=== PATIENT | male | born 1975 | race Caucasian/White ===

== ENCOUNTER 2016-09-14 18:21 | Emergency (ER) | payer OTHER ==
[~2016-09-14] VITALS: Ht 175.3 cm; Wt 100.0 kg
[~2016-09-14 18:21] MED LIST: CEPH-512 PO; IBUP800T28 PO; SULF1TAB7 PO
[2016-09-14 18:27] VITALS: BP 131/77; PULSE 77; RESP 20; O2SAT 98
[2016-09-14] MEDS ORDERED: Bupivacaine-MPF 0.5% 30 mL Inj ONE (20:31)
--- NOTE | 2016-09-14 21:02 | ED.REPORT ---
HPI-Rash / Abscess Date of Service Sep 14, 2016 ED Provider: Naveed Doshi PA-C Ciro is an otherwise healthy 40-year-old male presenting with a chief complaint of an abscess in his groin. Reports this began several days ago as an area roughly the size of a pencil eraser and is quickly grown. Reports drainage in the last day. Denies fever, chills, abdominal pain, vomiting, testicular pain. Her ports a history of abscesses and cellulitis. 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 Has not used in 4 years. Nursing Notes Stated Complaint: GIANT ABCESS IN GROIN Chief Complaint: Allergic Reaction Nursing Notes Reviewed: Yes Allergies: Coded Allergies: No Known Allergies (Unverified , 08/07/15) Scheduled Cephalexin (Keflex) 500 Mg Capsule 500 MG PO QID Sulfamethoxazole/Trimeth 800-160 mg (Bactrim DS) 1 Each Tablet 1 TABLET PO BID Sulfamethoxazole/Trimeth 800-160 mg (Bactrim DS) 1 Each Tablet 1 TABLET PO BID Scheduled PRN Ibuprofen (Ibuprofen) 800 Mg Tablet 800 MG PO TID PRN PRN For Pain General Time Seen by MD: 19:47 Chief Complaint Abscess Past Medical History Past Medical History Chiari malformation PTSD lipidemia inflammatory bowel disease kidney stones migraine headaches elevated BMI Reports: Diabetes mellitus, GERD, Hypertension Reports: Depression Past Surgical History brain surgery for Chiari malformation, wrist surger Smoking History Current Every Day Smoker Social History Alcohol Use: Denies alcohol use Drug Use: In recovery Other Social History: , Local resident Occupation lives with , Alyssia and baby Ambulatory Status Independent Review of Systems Review of Systems Note: Negative unless stated otherwise in history of present illness Physical Exam General: Well appearing, well developed, well nourished, no acute distress. Head: Atraumatic, normocephalic. Eyes: No scleral icterus or injection. No discharge. Vision grossly intact. ENT: Voice clear, hearing grossly intact. Respiratory: Regular rate and rhythm. Breath sounds present, clear to auscultation and equal bilaterally. No respiratory distress. No increased work of breathing, speaks in complete sentences. Cardiovascular: Regular rate and rhythm, without murmur, gallop or rub. No pedal edema. Gastrointestinal: Abdomen flat and non-tender without guarding or rebound. Bowel sounds normoactive. Skin: Warm and dry. : Roughly 4 cm x 4 cm area of redness, induration, tenderness in the right groin adjacent to the scrotum. Skin has the texture of scar tissue. No pocket of fluctuance is detected. Ultrasound reveals a small pocket of fluid. Normal circumcised penis, no rashes or lesions. Testes descended, nontender without masses bilaterally. Neurological: Grossly nonfocal. Psychological: Alert and oriented. Speech appropriate, linear and logical. Behavior appropriate. Initial Vital Signs Vital Signs (First) Date Time Temp Pulse Resp B/P Pulse Ox O2 Delivery O2 Flow Rate FiO2 09/14/16 18:27 36.6 77 20 131/77 98 Room Air Normal Re-Eval/Medical Decision Med Decision/Clinical Course 40-year-old male presents with a chief complaint of an abscess in his right groin. Patient reports a history of cellulitis and abscess as well as remote history of IV methamphetamine use. Reports his abscess. First is a spot approximately size of the pencil eraser 4 days ago and has grown. Now complains of drainage. On physical exam is generally well-appearing adult male, generally benign physical with normal vitals. There is a 4 cm x 4 cm area of redness, induration and laceration in his right groin. There is no obvious break in the skin. Ultrasound reveals a small pocket of fluid, which I consider draining, and went so far as to anesthetize the region. However on closer examination with the patient nontender is unable to locate any area of fluctuance that I felt would benefit from incision and drainage. I discussed this with the patient, we considered exploring for the pocket that was visualized on ultrasound but instead decided to start oral antibiotics, deferring incision and drainage. This is a course of action has worked well in the past for him. He reports previous success with Bactrim, and I have provided a prescription. Advised regarding [id number] analgesia. Advised regarding primary care follow-up, provided emergency return precautions. Patient verbalized understanding of, and consent to, the plan. Discharge & Departure Impression: Primary Impression: Cellulitis Site of cellulitis: trunk Site of cellulitis of trunk: groin Qualified Code : L03.314 - Cellulitis of groin Disposition: Home Discharge Condition All VS Reviewed: Yes Condition: Stable Patient Instructions: Cellulitis (ED) Additional Instructions: Evaluation in the emergency department for an abscess includes history, physical examination and ultrasound. I could not identify a good target for incision and drainage, and we decided against cutting it open. I will write a prescription for Bactrim DS to be taken twice a day for 10 days. The pain is best treated with 800 mg of ibuprofen (Advil, Motrin) every 8 hours , or 1000 mg of acetaminophen (Tylenol) every 6 hours. These drugs can be taken at the same time for more severe pain. I will give you a referral for primary care provider. Return to the emergency department for any new or worsening symptoms including increasing redness, swelling, pain, fever or feeling ill. Referrals: [facility] EDSupervising Provider for APC: Shai Cary Seth PA-C Sep 14, 2016 21:02
[2016-09-14] MEDS ORDERED: SULF1TAB7 PO (21:03)
[2016-09-14] MEDS ORDERED: Trimethoprim-Sulfa 160 mg-800 mg Tablet PO ONE (21:05)
[2016-09-14 21:16] VITALS: BP 127/79; PULSE 66; RESP 16; O2SAT 100
== END 2016-09-14 21:17 | disposition home or self-care (01) ==
LOC: SED 18:21
DX: L03.314 Cellulitis of groin (principal); E11.9 Type 2 diabetes mellitus without complications; K21.9 Gastro-esophageal reflux disease without esophagitis; I10 Essential (primary) hypertension; F17.200 Nicotine dependence, unspecified, uncomplicated

== ENCOUNTER 2016-10-18 15:15 | Emergency (ER) | payer SELFPAY ==
[2016-10-18 15:40] VITALS: BP 136/88; PULSE 76; RESP 16; O2SAT 98
--- NOTE | 2016-10-18 16:50 | ED.REPORT ---
HPI-General Illness Date of Service Oct 18, 2016 ED Provider: Dr. Timothy Yanes MD A 40 year old male with a history of previous IV drug abuse, Chiari malformation s/p brain surgery, PTSD, IBS, diabetes mellitus, hypertension and GERD presents to the ED complaining of an abscess to the inguinal area that first appeared a few days ago. He reports associated sharp pain and swelling to the affected area. He rates his current pain as a 5/10 and the pain does not radiate. The area starting draining on its own a few days ago but he was still noticing drainage and pain so decided to come in. The patient denies every using IV drugs in the inguinal area. The patient was seen in the ED on 09/14/2016 for an identical abscess and was discharged in good condition with a prescription for Bactrim to be take twice daily for 10 days. He finished the full round of antibiotics and the abscess and cellulitis resolved. Patient denies any recent testicular pain, testicular swelling, chest pain, SOB, headache, fever, chills, cough, unilateral weakness, nausea, vomiting, diarrhea , constipation, hematochezia, hematemesis, dysuria, hematuria, back pain, rash, visual disturbances, numbness or tingling in his extremities. Nursing Notes Stated Complaint: GROIN ABSCESS Chief Complaint: General Complaint Nursing Notes Reviewed: Yes Allergies: Coded Allergies: No Known Allergies (Unverified , 08/07/15) Scheduled Cephalexin (Keflex) 500 Mg Capsule 500 MG PO QID Sulfamethoxazole/Trimeth 800-160 mg (Bactrim DS) 1 Each Tablet 1 TABLET PO BID Sulfamethoxazole/Trimeth 800-160 mg (Bactrim DS) 1 Each Tablet 1 TABLET PO BID Scheduled PRN Ibuprofen (Ibuprofen) 800 Mg Tablet 800 MG PO TID PRN PRN For Pain General Time Seen by MD: 16:49 Chief Complaint Other (Inguinal Abscess) Hx Obtained From: Patient Arrived By: Walk-in Sudden in Onset?: No Symptom Duration: Since onset Associated with: Denies: Abdominal pain, Chest pain, Cough, Fever, Headache, Nausea, Shortness of breath, Vomiting Pertinent Negative: Pt denies other symptoms Recent Healthcare: No recent hospitalization, Recent doctor visit Past Medical History Past Medical History Chiari malformation PTSD lipidemia inflammatory bowel disease kidney stones migraine headaches elevated BMI Previous IV drug abuse Reports: Diabetes mellitus, GERD, Hypertension Reports: Depression Past Surgical History Brain surgery for Chiari malformation, Wrist surger Smoking History Current Every Day Smoker Social History Alcohol Use: Denies alcohol use Drug Use: In recovery, IV drugs Other Social History: , Local resident Occupation lives with , Alyssia and baby Ambulatory Status Independent Review of Systems + Inguinal abscess + Pain to affected area + Swelling to affected area Full Review of Systems Constitutional: Denies: Chills, Fever Respiratory: Denies: Non-productive cough, Shortness of breath GI: Denies: Abdominal pain, Constipation, Diarrhea, Hematemesis, Hematochezia, Nausea, Vomiting Male: Denies Testicular pain, Denies Testicular swelling Musculoskeletal: Denies: Joint pain Skin: Denies Rash Neurologic: Denies: Headache, Numbness, Vision change, Weakness Complete sys rev & neg: except as marked. Physical Exam Nursing note and vitals reviewed. Constitutional: Well-developed, well-nourished. Not diaphoretic. Head: Normocephalic and atraumatic. Mouth/Throat: Oropharynx is clear and moist. No oropharyngeal exudate. Eyes: EOM are normal. Pupils are equal, round, and reactive to light. Neck: Supple, no tracheal deviation. Cardiovascular: Normal rate, regular rhythm. No murmurs. Equal and intact distal pulses throughout. Pulmonary/Chest: Effort normal and breath sounds normal. No respiratory distress. Abdominal: Soft. No distension. There is no tenderness, rebound, or guarding. Male : No perineal swelling, erythema, or tenderness. No testicular tenderness. Small area of swelling to the right inguinal region - possible small abscess; erythema present to the right inguinal crease with mild purulent drainage. No significant induration of fluctuance. No crepitus Back: Straight leg negative. Musculoskeletal: Range of motion grossly intact, moving all extremities. No edema or tenderness appreciated. Neurological: AOx3. Grossly nonfocal exam. Strength and sensation intact and equal to bilateral upper and lower extremities. Skin: Warm and dry, no rashes or pallor appreciated. Psychiatric: Appropriate mood and affect. Behavior appears normal. Vital Signs Vital Signs Date Time Temp Pulse Resp B/P Pulse Ox O2 Delivery O2 Flow Rate FiO2 10/18/16 15:40 36.6 76 16 136/88 98 Room Air Re-Eval/Medical Decision Med Decision/Clinical Course In summary, 40-year-old male presenting to the ED for evaluation of swelling and erythema to the right inguinal region. There has been some concern for abscess in the past, however there is no significant fluctuance or induration on examination, a small area of drainage is present. No drainable fluid collection. I discussed performing a CT scan with the patient, however given clinical exam and lack of other symptoms, I do not think that this is necessary at this time. No signs of a necrotizing soft tissue infection such as Domingo' s gangrene. No testicular pain or tenderness, nor dysuria or discharge. Afebrile, nontoxic appearing. Plan on a course of clindamycin with close PCP follow-up in the next 1-2 days to reassess the area. I explained that I thought that this was a reasonable first step, however if he does not notice significant improvement soon, we made need to pursue further studies. I discussed performing these here in the ED, however he would like to try the antibiotics and reassessment for now, which seems reasonable. Plan discharge home with careful return precautions, close PCP follow-up. Patient agreeable to the plan as stated, no further questions. Time of Eval: 18:35 Patient Status: Condition improved Re-Evaluation/Progress Note: The patient's symptoms have improved upon recheck. He is informed of his results and diagnosis. All questions are addressed. The patient understands and agrees with the intended treatment plan. Counseled Regarding: Diagnosis, Lab results, Need for follow-up, When/why to return to ED Discharge & Departure Primary Impression: Inguinal abscess Additional Impression: Cellulitis Site of cellulitis: other site Qualified Code: L03.818 - Cellulitis of other sites Disposition: Home Discharge Condition All VS Reviewed: Yes Condition: Stable Patient Instructions: Abscess (ED), Cellulitis (ED) Additional Instructions: Thank you for allowing us to be a part of your care in the ED today. Your emergency department examination is reassuring that there is an emergent cause for your symptoms today that would require admission to the hospital. I do not believe the area requires incision and drainage. Antibiotics should clear the area within the next week. Take the full course of ---- as directed. Please schedule a follow up appointment with the [facility] (see referral ) in the next 1-2 days for a recheck. Please return to the emergency department for any new or worsening symptoms including any high fevers, or shaking chills, increased redness, increased swelling, significant purulent discharge, testicular pain, nausea, vomiting, abdominal pain, or if there's anything else of concern to you. Referrals: [facility] (PCP) [facility] Scribe Attestation Portions of this note were transcribed by Junito Gan. I, Dr. Yanes personally performed the history, physical exam and medical decision-making; I reviewed and confirmed the accuracy of the information in the transcribed note. Timothy Yanes MD Oct 18, 2016 16:50 JUNITO GAN Oct 18, 2016 17:37
[2016-10-18 19:11] VITALS: BP 124/87; PULSE 81; RESP 16; O2SAT 99
[2016-10-18] MEDS ORDERED: _Clindamycin 150 mg Capsule PO SCH (21:30)
== END 2016-10-18 19:12 | disposition home or self-care (01) ==
LOC: SED 15:15
DX: L02.214 Cutaneous abscess of groin (principal); L03.314 Cellulitis of groin; F43.10 Post-traumatic stress disorder, unspecified; E11.9 Type 2 diabetes mellitus without complications; I10 Essential (primary) hypertension; K21.9 Gastro-esophageal reflux disease without esophagitis; F32.9 Major depressive disorder, single episode, unspecified; F17.200 Nicotine dependence, unspecified, uncomplicated; Z87.442 Personal history of urinary calculi

== ENCOUNTER 2016-11-12 17:12 | Emergency (ER) | payer OTHER ==
[~2016-11-12] VITALS: Ht 175.3 cm; Wt 100.0 kg
[2016-11-12 17:15] VITALS: BP 113/83; PULSE 92; RESP 16; O2SAT 97
--- NOTE | 2016-11-12 17:30 | ED.REPORT ---
HPI-Rash / Abscess Date of Service Nov 12, 2016 ED Provider: Ciro is a 40-year-old male with a history of diabetes, hypertension presenting to emergency Department with chief complaint of a groin abscess. Patient reports several days of increasing redness, swelling, pain and drainage in his right groin. He reports several episodes of similar, treated with antibiotics which causes symptoms to receive only to return several weeks later. Denies abdominal pain, vomiting, diarrhea, testicular pain, dysuria, penile discharge, hematuria, fever, shaking chills, feeling ill. Admits a remote history of IV methamphetamine use, most recently 4 years ago. Nursing Notes Stated Complaint: GROIN ABSCESS Chief Complaint: Skin Rash/Abscess Nursing Notes Reviewed: Yes Allergies: Coded Allergies: No Known Allergies (Unverified , 08/07/15) Scheduled Cephalexin (Keflex) 500 Mg Capsule 500 MG PO QID Cephalexin (Cephalexin) 500 Mg Tablet 500 MG PO QID Sulfamethoxazole/Trimeth 800-160 mg (Bactrim DS) 1 Each Tablet 1 TABLET PO BID Sulfamethoxazole/Trimeth 800-160 mg (Bactrim DS) 1 Each Tablet 1 TABLET PO BID Sulfamethoxazole/Trimeth 800-160 mg (Bactrim DS) 1 Each Tablet 1 TABLET PO BID Scheduled PRN Ibuprofen (Ibuprofen) 800 Mg Tablet 800 MG PO TID PRN PRN For Pain General Time Seen by MD: 17:29 Chief Complaint Abscess Past Medical History Past Medical History Chiari malformation PTSD lipidemia inflammatory bowel disease kidney stones migraine headaches elevated BMI Previous IV drug abuse Reports: Diabetes mellitus, GERD, Hypertension Reports: Depression Past Surgical History Brain surgery for Chiari malformation, Wrist surger Smoking History Current Every Day Smoker Social History Alcohol Use: Denies alcohol use Drug Use: In recovery, IV drugs Other Social History: , Local resident Occupation lives with , Alyssia and baby Ambulatory Status Independent Review of Systems Review of Systems Note: Negative unless stated otherwise in history of present illness Physical Exam General: Well appearing, well developed, well nourished, no acute distress. : Normal circumcised penis without rashes, lesions or discharge. Testicles and epididymides descended bilaterally, nontender without masses. There is roughly a 4 cm area of redness, induration, tenderness with apparent sinus tract draining purulent/bloody fluid at the inferior inguinal crease adjacent to the scrotum. No fluctuance is noted. Head: Atraumatic, normocephalic. Eyes: No scleral icterus or injection. No discharge. Vision grossly intact. ENT: Voice clear, hearing grossly intact. Respiratory: No respiratory distress, no increased work of breathing. Speaks in complete sentences. GI: Abdomen flat and nontender, normal to auscultation. Skin: Warm and dry. Neurological: Grossly nonfocal. Psychological: alert and oriented. Speech appropriate, linear and logical. Behavior appropriate. Initial Vital Signs Vital Signs (First) Date Time Temp Pulse Resp B/P Pulse Ox O2 Delivery O2 Flow Rate FiO2 11/12/16 17:15 37 92 16 113/83 97 Room Air Normal Interpretation & Diagnostics Interpretation & Diagnostics: PROCEDURE: CT PELVIS WITH CONTRAST ([id number]) INDICATIONS: draining lesion, inguinal crease IMPRESSION: 1. Right inguinal cellulitis with no CT evidence of abscess or drainable fluid collection. 2. Ill-defined 10 mm area of right ilial sclerosis may represent a benign lesion. Consider correlation with a bone scan on a nonemergent basis. Lab Results Interpretation Result Diagram: 11/12/16191811/12/161918 Test 11/12/16 19:19 White Blood Count 11.8th/mm3 (3.8-10.1) Red Blood Count 5.61mil/mm3 (4.40-5.80) Hemoglobin 17.1g/dL (13.8-17.2) Hematocrit 48.6% (41.0-50.0) Mean Corpuscular Volume 86.6fL (81-100) Mean Corpuscular Hemoglobin 30.5pg (27.0-35.0) Mean Corpuscular Hemoglobin Concent 35.2% (32.0-37.0) Red Cell Distribution Width 13.7% (12.3-15.4) Platelet Count 225bil/L (150-400) Neutrophils (%) (Auto) 61.9% (40-74) Lymphocytes (%) (Auto) 25.9% (14-46) Monocytes (%) (Auto) 10.2% (4-12) Eosinophils (%) (Auto) 1.4% (0-5) Basophils (%) (Auto) 0.3% (0-3) Sodium Level 137mEq/L (134-144) Potassium Level 4.2mEq/L (3.5-5.2) Chloride Level 101mEq/L (97-108) Carbon Dioxide Level 21mmol/L (18-29) Blood Urea Nitrogen 13mg/dL (6-20) Creatinine 0.98mg/dL (0.76-1.27) Estimat Glomerular Filtration Rate 91mL/min (>59) Glucose Level 97mg/dL (60-99) Calcium Level 8.9mg/dL (8.5-10.1) Total Bilirubin 0.3mg/dL (0.0-1.2) Aspartate Amino Transf (AST/SGOT) 28U/L (0-50) Alanine Aminotransferase (ALT/SGPT) 36U/L (0-44) Alkaline Phosphatase 82U/L (25-150) Total Protein 7.0g/dL (6.4-8.4) Albumin 4.1g/dL (3.4-5.0) Hold Colmenares Top Tube Received (Received) Re-Eval/Medical Decision Med Decision/Clinical Course 32-year-old male with a history of diabetes, hypertension, IV methamphetamine abuse in the remote past presents emergency Department with repeat right groin cellulitis. Complains of redness, pain, swelling and discharge for the last several days. Reports several previous episodes that resolved after antibiotic treatment but returned within a month. Denies symptoms of systemic illness. Physical examination reveals redness, swelling and induration as well as a small pore apparently draining purulent and bloody fluid in the right inguinal crease adjacent to the scrotum. Penis and testicles are nontender, and abdomen is nontender. Remainder of examination is benign with normal vitals. CBC reveals mild leukocytosis. CMP is unremarkable. I discussed the case with Dr. tompkins, who met with and examined the patient. Recommend CT scan. This returns suggestive of cellulitis with no indication of phlegmon or abscess. Dr. Vickers is consulted, who recommends antibiotics and outpatient follow-up after review of CT scans. I feel this is reasonable considering the patient's nontoxic appearance, minimal leukocytosis and normal vitals. Discussed this with the patient, who is amenable. Provide prescriptions for Bactrim and Keflex. Provided surgery referral. Provided emergent return precautions. Patient verbalizes understanding of and consented to the plan. 10 mm area of right ilial sclerosis incidentally noted on CT scan was not discussed with the patient. I did contact the patient by phone after shift change but he did not pickle maker. I made arrangements for the patient to be contacted tomorrow. Re-Evaluation/Progress : Time of Eval: 20:49 Consultation : Referral / Consult Name: Princess Vickers MD Call Returned at: 20:42 Note: Discussed the case, Dr. Vickers reviewed CT scans. She agrees with the radiologist. Recommends antibiotics, outpatient follow-up in her clinic. Discharge & Departure Impression: Primary Impression: Cellulitis Site of cellulitis: extremity Site of cellulitis of extremity: lower extremity Laterality: right Qualified Code: L03.115 - Cellulitis of right lower limb Disposition: Home Discharge Condition All VS Reviewed: Yes Condition: Stable Patient Instructions: Cellulitis (ED) Additional Instructions: Evaluation for right groin pain in the emergency department includes interview, physical examination, blood work and CT scan all of which suggest you have cellulitis in your groin, again. I discussed the case with Dr. Vickers, general surgeon. She recommends antibiotics and following up in her clinic. I will provide her with a referral. Please contact her office tomorrow to arrange to be seen. Since you just finished a course of clindamycin, I will prescribe Keflex and Bactrim to be taken for the next 10 days. Return to emergency department for new or worsening symptoms including increasing pain, redness, swelling, fever, feeling ill. Referrals: Princess Vickers MD EDSupervising Provider for APC: Casa Tompkins MD Attending Statement Attending attestation: I saw this patient in conjunction with Naveed Doshi PA-C. I independently conducted history and examine the patient. I agree with the workup, evaluation , treatment and disposition. Casa Tompkins MD copies to: Princess Vickers MD, Beck O MD Nov 12, 2016 17:30 Naveed Doshi PA-C Nov 12, 2016 18:55
[2016-11-12 19:24] LABS: BASOPHILS % (AUTO) 0.3 % (0-3); EOSINOPHILS % (AUTO) 1.4 % (0-5); MONOCYTES % (AUTO) 10.2 % (4-12); Mean Corpuscular Hemoglobin 30.5 pg (27.0-35.0); Mean Corpuscular Volume 86.6 fL (81-100); NEUTROPHILS % (AUTO) 61.9 % (40-74); Platelet Count 225 bil/L (150-400)
[2016-11-12 19:58] VITALS: BP 116/58; PULSE 71; RESP 18; O2SAT 96
--- NOTE | 2016-11-12 20:17 | DRSVH ---
PROCEDURE: CT PELVIS WITH CONTRAST ([id number]) INDICATIONS: draining lesion, inguinal crease TECHNIQUE: After the administration of intravenous contrast, 5 mm thick sections acquired from the iliac crests to the symphysis. 5 mm coronal and sagittal reformats were acquired. For radiation dose reduction, the following was used: automated exposure control, adjustment of mA and/or kV according to patient size. COMPARISON: None. FINDINGS: Image quality: Excellent. Peritoneum and bowel: Bowel loops demonstrate normal wall thickness and caliber. No free fluid or a ir. Genitourinary: Bladder wall thickness is normal. Nodes and vessels: No iliac, pelvic, or left inguinal adenopathy by size criteria. Mild right inguin al lymphadenopathy. Iliac vessels demonstrate normal size and enhancement. Bones: Ill-defined 10 mm increased density in the right ileum (se 2 im 14). Miscellaneous: Skin thickening and enhancement in the right inguinal crease with no rim-enhancing flu id collections or evidence of abscess. Minimal right inguinal lymphadenopathy. IMPRESSION: 1. Right inguinal cellulitis with no CT evidence of abscess or drainable fluid collection. 2. Ill-defined 10 mm area of right ilial sclerosis may represent a benign lesion. Consider correlatio n with a bone scan on a nonemergent basis. Dictated by: Mac Napoles M.D. on 11/12/2016 at 20:10 Approved by: Mac Napoles M.D. on 11/12/2016 at 20:15
[2016-11-12] MEDS ORDERED: CEPH500T PO (20:59)
[2016-11-12] MEDS ORDERED: SULF1TAB7 PO (20:59)
[2016-11-12] MEDS ORDERED: Trimethoprim-Sulfa 160 mg-800 mg Tablet PO ONE (21:00)
[2016-11-12 21:14] VITALS: BP 116/58; PULSE 71; RESP 18; O2SAT 96
== END 2016-11-12 21:15 | disposition home or self-care (01) ==
LOC: SED 17:12
DX: L02.214 Cutaneous abscess of groin (principal); E11.9 Type 2 diabetes mellitus without complications; I10 Essential (primary) hypertension; K21.9 Gastro-esophageal reflux disease without esophagitis; F17.200 Nicotine dependence, unspecified, uncomplicated; F15.21 Other stimulant dependence, in remission
CPT/HCPCS: 36415; 72193; 80053; 85025; 99284; Q9967

== ENCOUNTER → 2016-11-29 | Day surgery (SDC) | payer OTHER ==
[2016-11-29] VITALS (8 sets, daily range): BP systolic 104–123; BP diastolic 58–74; PULSE 60–66; RESP 16–17; O2SAT 96–99
[~2016-11-29] VITALS: Ht 175.3 cm; Wt 105.8 kg
[~2016-11-29] MED LIST changes: +Bupivacaine-MPF 0.5% 30 mL Inj INFILTRATE ONE; -CEPH-512 PO; +CeFAZolin 2 Gm/50 mL D5W Duplex Bag IV ONE; +CeFAZolin Inj 2 GM in IV Premix 1 EACH IV ONE; +Dexamethasone 4 mg/mL Inj IVPUSH PRN; +Dexamethasone 4 mg/mL Inj ONE; +EPHEDrine Sulfate 50 mg/mL Inj IVPUSH PRN; +HYDROmorphone 1 mg/mL Inj IVPUSH PRN; -IBUP800T28 PO; +Lactated Ringer's 1,000 ML IV SCH; +Lactated Ringer's 500 ML IV PRN; +MetoCLOpramide 5 mg/mL 2 mL Inj IVPUSH PRN; +MetoCLOpramide 5 mg/mL 2 mL Inj ONE; +Ondansetron 2 mg/mL 2 mL Inj IVPUSH PRN; +Ondansetron 2 mg/mL 2 mL Inj ONE; +Phenylephrine 10,000 mCg/mL Inj IVPUSH PRN; +Propofol 10,000 mCg/mL 20 mL Inj ONE; -SULF1TAB7 PO; +fentaNYL-PF 50 mCg/mL 2 mL Inj IVPUSH PRN
--- NOTE | 2016-11-29 13:42 | PCM.HPANE ---
Patient Data Surgeon Admitting Provider: Attending Provider:Princess Vickers MD Primary Care Physician:Tray Other Provider:Sintia Segovia Anesthesia Reason for Visit Right Groin Phlegmon Ht/WT & BMI Height (Feet): 5 Height (Inches): 9 Weight (Kilograms): 105.8 Body Mass Index 34.00 Allergies Coded Allergies: NSAIDS (Non-Steroidal Anti-Inflamma (Verified Adverse Reaction, Severe, GI BLEEDING (CAN TAKE IBUPROFEN), 11/28/16) Past Anesthesia History Anesthesia History: Denies:: Abnormal Airway, Anesthesia Reactions, Difficult Intubation, Fam Anesthesia Reaction, Fam Malignant Hypertherm, Malignant Hyperthermia Diabetes History Hx Diabetes?: No Type of Diabetes: Diet Controlled MRSA MRSA: No Medications Hypertension Medication: No Home Meds Incl Beta Colten: No No Active Prescriptions or Reported Meds History History of ENT Problems?: No HEENT History: Denies:: Abnormal Airway Difficult Intubation Dysphagia Hearing Problem Sinus Problem TMJ Denture Type: Full- Upper Teeth Condition: Within Normal Limits Hx of Heart Problems?: No Cardiovascular History: Positive for:: Hypertension (HX OF HTN/HYPERLIPIDEMIA) Denies:: Congestive Heart Failure Pacemaker Thrombophlebitis Hx of Respiratory Problem?: No Respiratory History: Denies:: Tuberculosis Use of C-PAP Machine Hx Neurologic Problems?: Yes Neurological History: Denies:: Alzheimer's Disease CVA Dementia Dizziness Headaches Parkinson's Disease Seizures TIA Other Neurological Pertinent: S/P BRAIN SURGERY FOR CHIARI MALFORMATION Hx of GI Problems?: Yes Hx of Problems?: Yes Genitourinary History: Positive for:: Kidney Stones Denies:: HX of Hemodialysis HX of Peritoneal Dialysis: No Male Hx: Denies:: Prostate Problems Scrotal Mass Testicular Surgery Skin History: Positive for:: History Skin Disorders? (RT GROIN PHLEGMON= CURRENT PROBLEM) Denies:: Pressure Ulcers Hx Musculoskeletal Problems?: Yes Musculoskeletal History: Positive for:: Back Injury (from manual labor) Musculoskeletal Trauma (S/P l wrist from self inflicted cut; r wrist screw in place) Denies:: Joint Replacement Osteoarthritis Rheumatoid Arthritis Hx of Psycho/Social Problems?: Yes Psycho Social History: Positive for:: Anxiety (PTSD) Hx Depression Suicide Attempt (W/ RESULTANT WRIST ISSUES) Denies:: Bipolar Disorder Hx Surgeries?: Yes (BRAIN SURGERY, B/L WRIST RPR'S) Hx Any Other Health Problems?: Yes Other History: Positive for:: Hospitalization Denies:: Cancer Endocrine Disease Thyroid Disease History Blood Transfusions: Positive for:: Accept Blood Products? 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) Smoking Status: Current Every Day Smoker Have You Smoked inLast 12 mo: YesApprox How Many Cigarettes/day: 20 Stop/Bang Treated for Sleep Apnea?: No Do You Have a CPAP Machine?: No S-Snoring: Do You Snore Loudly: No T-Tired: feel tired, fatigued: No O-Obsered: Observed not breath: No P-Blood Pressure: treated: No B- Body Mass Index > 35 kg/m2: No A- Age over 50: No N- Neck Large Circumference: No G- Gender Male: Yes CHRISTOPHER Total Score: 1 CHRISTOPHER Risk Assessment: Low Risk, <3 Yes Risk Assessment Category Category 1A: Patient has history of documented sleep apnea, and HAS NOT received any narcotic, sedative or anesthesia administration during this stay. Category 1B: Patient has history of documented sleep apnea, and HAS received any narcotic , sedative or anesthesia administration during this stay Category 2: Patient has SUSPECTED Obstructive Sleep Apnea, and HAS received any narcotic , sedative or anesthesia administration during this stay. Category 3: Patient has SUSPECTED Obstructive Sleep Apnea and HAS NOT received narcotic, sedative or anesthesia administration during this stay. Category 4: Outpatient in Procedural Areas with known sleep apnea or who screen positive for High Risk via the STOP/BANG questionnaire. Exam Exam Vital Signs Vital Signs Date Time Temp Pulse Resp B/P Pulse Ox O2 Delivery O2 Flow Rate FiO2 11/29/16 11:18 36.3 66 16 120/74 96 Room Air General Appearance: Oriented X3 HEENT/AIRWAY: MP 2 Lungs: Normal Air Movement Heart: Regular Rate/Rhythm Plan Impression Patient chart reviewed, patient interviewed and anesthestic plan with risks, benefits, and alternatives discussed, and informed consent obtained. ASA Physical Status: ASA2 Mod Systemic Disease Anesthetic Plan: GA Bene/Risks/Altern/Consents: Yes HP Complete Prior to Induction: Yes Senthil Lal MD Nov 29, 2016 13:42
--- NOTE | 2016-11-29 14:44 | PCM.SURGOP ---
Surgical Operative Report Date of Service: Nov 29, 2016 Pre Operative Diagnosis Right groin phlegmon Post Operative Diagnosis Right groin phlegmon Procedure: Excision of right groin phlegmon Surgeon and Dough Sheeter: Surgeon: Princess Vickers MD Assistants: Nelly Thomas MD R3; Cecille Yung MS3 Indication for Procedure This is a 41-year-old male who has had a right groin phlegmon for several years. It typically presents as a draining sinus in the right groin, without a discrete abscess cavity. It has resulted in several emergency department visits. One month ago, he was in the emergency department and a CT scan was shown which revealed fat stranding within the adipose tissue of the brain consistent with phlegmon, without a discrete abscess cavity. Due to the chronic and recurrent nature of phlegmon, excision was offered. Findings: Thickened, firm adipose tissue in the right groin, consistent with chronic phlegmon. There is no abscess cavity. Procedure Details The patient was brought to the operating room and placed in supine position. General anesthesia was induced. He was repositioned into frog-leg position. The operative field was prepped and draped in sterile fashion. Antibiotics were infused. A preprocedural timeout was performed to confirm the correct patient, procedure, site, and side. An elliptical incision was made in the right groin in order to remove the involved thickened, indurated, chronically inflamed tissue. The underlying adipose tissue was removed with cautery until only normal adipose tissue was exposed. The final cavity measured 5 cm in length by 4 cm in width by 0.5 cm in depth. Subcutaneous tissue was closed with interrupted 3-0 Vicryl stitches. Skin was closed with interrupted nylon stitches. A sterile dressing was placed. The patient was awakened from general anesthesia. He tolerated the procedure well. Complications There were no periprocedural complications identified. Surgical Specimen Removed: Yes Specimen sent to Pathology: No Surgical Specimen description: Right groin phlegmon of skin and subcutaneous tissue; this was sent for culture but not for pathology. Anesthetic Plan: GA Grafts, Implants: None Output, Estimated Blood Loss: 2 (ml) Blood Administration during pang: No Princess Vickers MD Nov 29, 2016 14:44
--- NOTE | 2016-11-29 14:54 | PCM.DISURG ---
Surgical Discharge Instruction Date of Service Nov 29, 2016 Dates of Hospitalization Date of Hospital Admission Providers Admitting Physician: Primary Care Physician: Tray Attending Physician: Princess Vickers MD Discharge Diagnosis Post Operative diagnosis Right groin phlegmon Diet Discharge Diet: No restrictions Activity Discharge Activity-General: No restrictions, Balance rest and activity Dressing and Incisional Care Dressing Care: Change soiled dressing (as needed to keep wound dry.) Hygiene: DO NOT soak incision under water, NO bathtub, hot tub or whirlpool ( until sutures removed.) Follow Up Plan Follow Up Plan 1-2 weeks Mid-level Provider (F9): Ryan Lua PA-C, Shanley B MD Nov 29, 2016 14:54
--- NOTE | 2016-11-29 15:04 | PCM.ANEP1 ---
Post Anesthesia PACU Phase 1 Assessment Vital Signs Vital Signs Date Time Temp Pulse Resp B/P Pulse Ox O2 Delivery O2 Flow Rate FiO2 11/29/16 14:46 37.1 66 17 105/58 99 Simple Mask 8 11/29/16 11:18 36.3 66 16 120/74 96 Room Air Anesthetic Administered: GA Level of Alertness: Awake, talking Pain: No Nausea or Vomiting: No CV Function & Hydration Stable: Yes Airway Device: Lungs: Normal Air Movement PACU Phase 2 Assessment Patient Instructions Provided: N/A Senthil Lal MD Nov 29, 2016 15:04
== END | disposition home or self-care (01) ==
LOC: SAS 10:59
PROVIDERS: ATTEND Surgery
DX: L02.214 Cutaneous abscess of groin (principal); I10 Essential (primary) hypertension; F43.10 Post-traumatic stress disorder, unspecified; G93.5 Compression of brain; F32.9 Major depressive disorder, single episode, unspecified; F17.210 Nicotine dependence, cigarettes, uncomplicated; Z86.69 Personal history of other diseases of the nervous system and sense organs; Z87.898 Personal history of other specified conditions; Z87.442 Personal history of urinary calculi
CPT/HCPCS: 11406; 87070; 87075; 87205; J0690; J1100; J2405; J2704; J2765; J7120